=== PATIENT | female | born 1990 | race Caucasian/White ===

== ENCOUNTER 2020-12-13 15:33 | Outpatient (CLI) | payer OTHER ==
--- NOTE | 2020-12-13 16:40 | XRAY Report ---
PROCEDURE: Lumbar Spine 2 View INDICATIONS: LOW BACK PAIN TECHNIQUE: 2. views of the lumbar spine were acquired. COMPARISON: None. FINDINGS: Bones: There are 5 nonrib-bearing lumbar-type vertebral bodies of normal height and alignment. No si gnificant degenerative changes. No evidence of pars defect. Sacroiliac joint space is maintained. Soft tissues: Overlying bowel gas pattern is normal. No suspicious soft tissue calcifications. IMPRESSION: No acute finding or significant degenerative changes. Reviewed by: Nitin Alvarenga MD on 12/13/2020 4:38 PM PST Approved by: Nitin Alvarenga MD on 12/13/2020 4:38 PM PST Station ID: [id number]
== END 2020-12-13 15:34 | disposition home or self-care (01) ==
LOC: DI 15:33
PROVIDERS: ATTEND Physician Assistant
DX: M54.5 Low back pain (principal)

== ENCOUNTER 2021-02-13 09:15 | Outpatient (CLI) | payer OTHER ==
[2021-02-13] MEDS ORDERED: SODIUM CHLORIDE 0.9% IV ONE (10:45)
[2021-02-13] MEDS ORDERED: SINCALIDE IV ONE (10:45)
--- NOTE | 2021-02-13 13:52 | Nuclear Medicine Report ---
PROCEDURE: Hepatobiliary HIDA w/ Rx INDICATIONS: ABN ABD IMAGIN, ABD/EPIGASTRIC PAIN, NAUSEA AND VO RADIOPHARMACEUTICAL: 5.14 mCi Tc-99m meprofenin i.v. and 1.9 ?g sincalide i.v. TECHNIQUE: Following intravenous administration of Tc-99m meprofenin, sequential anterior abdominal images were obtained through 55 minutes. To evaluate the contractile response of the gallbladder in response to Cholecystokinin (CCK), 1.9 microgram sincalide (0.02 ?g/kg) was administered by slow intr avenous infusion after the administration of the radiopharmaceutical. Sequential imaging was continu ed for 30 minutes after the start of CCK infusion. Gallbladder ejection fraction was calculated. COMPARISON: None. FINDINGS: Biliary scan: There is normal tracer uptake and excretion by the liver. There is normal visualizati on of the intrahepatic ducts, common bile duct, and gallbladder. There is normal tracer transit into the duodenum. CCK stimulation: There is normal contractile response of the gallbladder to CCK infusion. The calcu lated gallbladder ejection fraction is 57%; normal values are above 35%. IMPRESSION: 1. Normal biliary imaging study. 2. Normal contractile response of gallbladder to CCK infusion.. Reviewed by: Ander Harvey MD on 02/13/2021 1:50 PM PDT Approved by: Ander Harvey MD on 02/13/2021 1:50 PM PDT Station ID: [id number]
== END 2021-02-13 09:16 | disposition home or self-care (01) ==
LOC: DI 09:15
PROVIDERS: ATTEND Student in an Organized Health Care Education/Training Program
DX: R93.5 Abnormal findings on diagnostic imaging of other abdominal regions, including retroperitoneum (principal); R10.13 Epigastric pain; R11.2 Nausea with vomiting, unspecified
CPT/HCPCS: 78227; J7040

== ENCOUNTER 2021-03-10 11:20 | Outpatient (CLI) | payer OTHER ==
[2021-03-10 11:56] LABS: ALBUMIN 4.3 g/dL (3.2-5.5); ALBUMIN/GLOBULIN RATIO 1.3 (1.0-2.2); BILIRUBIN,TOTAL 0.4 mg/dL (0.2-1.0); CALCIUM 9.5 mg/dL (8.5-10.3); CREATININE 0.7 mg/dL (0.4-1.0); POTASSIUM 4.1 mmol/L (3.5-5.0); TOTAL PROTEIN 7.5 g/dL (6.7-8.2)
== END 2021-03-10 11:21 | disposition home or self-care (01) ==
LOC: LAB 11:20
PROVIDERS: ATTEND Surgery
DX: Z01.812 Encounter for preprocedural laboratory examination (principal); K80.20 Calculus of gallbladder without cholecystitis without obstruction; Z20.822 Contact with and (suspected) exposure to COVID-19
CPT/HCPCS: 36415; 80053

== ENCOUNTER 2021-03-13 06:19 | Day surgery (SDC) | payer OTHER ==
[~2021-03-13 06:19] MED LIST: ceFAZolin 2 GM/50 ML 2 GM/50 ML BAG IV ONE
[2021-03-13 06:52] LABS: HCG UR QUAL NEGATIVE
[2021-03-13] MEDS ORDERED: BUPIVACAINE 0.5% PF 30 ML VIAL ONE (07:00)
[2021-03-13] MEDS ORDERED: MIDAZOLAM 2 MG/2 ML VIAL ONE (07:00)
[2021-03-13] MEDS ORDERED: fentaNYL 100 MCG/2 ML VIAL ONE (07:00)
[2021-03-13] MEDS ORDERED: LIDOCAINE-MPF 2% 5 ML VIAL ONE (07:00)
[2021-03-13] MEDS ORDERED: PROPOFOL 200 MG/20 ML VIAL IVP ONE (07:00)
[2021-03-13] MEDS ORDERED: IOTHALAMATE MEGLUMINE 50 ML VIAL ONE (07:01)
[2021-03-13] MEDS ORDERED: LACTATED RINGERS 1,000 ML IV ONE (07:05)
[2021-03-13] MEDS ORDERED: ROCURONIUM 50 MG/5 ML VIAL ONE ×2 (07:05→08:08)
--- NOTE | 2021-03-13 07:10 | ANESTHESIA ---
Pre-Anesthesia VS, & Labs - Diagnosis symptomatic cholelithiasis - Procedure lap curtis Vital Signs: Temp Pulse Resp BP Pulse Ox 36.3 C L 101 H 14 141/88 H 96 03/13/21 06:23 03/13/21 06:23 03/13/21 06:23 03/13/21 06:23 03/13/21 06:23 Height: 5 ft 9 in Weight (kg): 98.5 kg Body Mass Index: 32.1 BMI Classification: Obese - NPO >8 hours - Is Patient ?: No Home Medications and Allergies Home Medications: Ambulatory Orders ALPRAZolam [Alprazolam] 0.5 mg PO BID PRN 03/09/21 Dicyclomine [Bentyl] 10 mg PO QID PRN 03/09/21 Fluoxetine HCl [Prozac] 60 mg PO DAILY 03/09/21 HYDROmorphone [Dilaudid] 1 - 2 mg PO Q6H PRN 03/09/21 Omeprazole 40 mg PO BID 03/09/21 hydrOXYzine HCL [Hydroxyzine HCl] 25 - 50 mg PO QID PRN 03/09/21 ALPRAZolam [Alprazolam] 0.5 mg PO BID PRN 03/09/21 Dicyclomine [Bentyl] 10 mg PO QID PRN 03/09/21 Fluoxetine HCl [Prozac] 60 mg PO DAILY 03/09/21 HYDROmorphone [Dilaudid] 1 - 2 mg PO Q6H PRN 03/09/21 Omeprazole 40 mg PO BID 03/09/21 hydrOXYzine HCL [Hydroxyzine HCl] 25 - 50 mg PO QID PRN 03/09/21 Allergies/Adverse Reactions: Allergies Allergy/AdvReac Type Severity Reaction Status Date / Time sertraline [From Zoloft] Allergy Rash Verified 03/09/21 10:30 Anes History & Medical History - Anesthetic History Anesthesia Complications: reports: No previous complications - Medical History Cardiovascular: reports: None Pulmonary: reports: Sleep apnea (does not use cpap) Gastrointestinal: reports: Cholelithiasis Urinary: reports: None Neuro: reports: None Musculoskeletal: reports: None Endocrine/Autoimmune: reports: None Blood Disorders: reports: None Skin: reports: None Smoking Status: Current every day smoker (vapes) Psychosocial: reports: Depression, Anxiety, Other (PTSD) - Surgical History General: reports: Appendectomy, EGD Eyes Ears Nose Throat (EENT): reports: Tonsil/Adenoidectomy Gynecologic: reports: Other Exam General: Alert, Oriented x3, Cooperative, No acute distress Dental: WNL Mouth Openin Fingerbreadth Neck Mobility: Normal Mallampati classification: II Thyromental Distance: 4-6 cm Respiratory: Lungs clear, Normal breath sounds, No respiratory distress, No accessory muscle use Cardiovascular: Regular rate, Normal S1, Normal S2, No murmurs Mental/Cognitive Status: Alert/Oriented X3, Normal for patient Plan Anesthesia Type: General Consent for Procedure(s) Verified and Reviewed: Yes Code Status: Attempt Resuscitation ASA classification: 2-Mild systemic disease Is this case an emergency?: No
[2021-03-13] MEDS ORDERED: BUPIVACAINE 0.5% PF 30 ML VIAL INFIL ONE ×2 (07:16→08:39)
[2021-03-13] MEDS ORDERED: ONDANSETRON 4 MG/2 ML VIAL ONE (07:56)
[2021-03-13] MEDS ORDERED: DEXAMETHASONE 4 MG/ML VIAL ONE (07:56)
[2021-03-13] MEDS ORDERED: fentaNYL 100 MCG/2 ML VIAL IVP PRN (07:57)
[2021-03-13] MEDS ORDERED: NALOXONE 0.4 MG/ML VIAL IVP PRN (07:57)
[2021-03-13] MEDS ORDERED: ePHEDrine 50 MG/ML VIAL IVP PRN (07:57)
[2021-03-13] MEDS ORDERED: ONDANSETRON 4 MG/2 ML VIAL IVP PRN (07:57)
[2021-03-13] MEDS ORDERED: MORPHINE 2 MG/ML CARPUJECT IVP PRN (07:57)
[2021-03-13] MEDS ORDERED: ATROPINE ABBOJECT 1 MG/10 ML SYRINGE IVP PRN (07:57)
[2021-03-13] MEDS ORDERED: LACTATED RINGERS 1,000 ML IV SCH (08:00)
[2021-03-13] MEDS ORDERED: GLYCOPYRROLATE 1 MG/5 ML VIAL ONE (08:26)
[2021-03-13] MEDS ORDERED: NEOSTIGMINE 1 MG/1 ML 10 ML MDV ONE (08:26)
[2021-03-13] MEDS ORDERED: KETOROLAC 30 MG/ML VIAL ONE (08:27)
[2021-03-13] MEDS ORDERED: HYDROmorphone 1 MG/ML CARPUJECT ONE (09:01)
[2021-03-13] MEDS: HYDROmorphone 0.5 MG/0.5 ML SYRINGE IVP PRN ×5 (09:02→09:20)
--- NOTE | 2021-03-13 09:23 | OPERATIVE REPORT ---
Operative Report - General Procedure Date: 03/13/21 Planned Procedure: Laparoscopic cholecystectomy, possible open cholecystectomy, possible intraoperative cholangiogram, possible common bile duct exploration Pre-Op Diagnosis: Symptomatic cholelithiasis Procedure Performed: Laparoscopic cholecystectomy CPT 25338 Post Op Diagnosis: Same - Procedure Note Primary Surgeon: Froy Hussein MD Anesthesia Provider: Konstantin Childress CRNA Anesthesia Technique: General ET tube, Local (30 mL of half percent Marcaine) IV Fluids (mL): 1,000 Estimated Blood Loss (mL): 5 Drain/Tube Type: Other (None.) Complications: None. - Other Other Information/Narrative: After verbal and written informed consent was obtained detailing the operation, the alternatives to the operation including no operation, risks of infection, bleeding requiring transfusion with its risks, nerve injury, and and after I met with the patient confirming the surgery, the patient was brought to the operative suite and placed supine on the operating table. Great care was taken to avoid pressure points to prevent pressure necrosis or nerve injury. Monitoring devices were applied along with TEDs and pneumatic compressive stockings (to prevent DVT). The patient received preoperative antibiotics for surgical prophylaxis. Konstantin Childress CRNA sedated and anesthetized the patient for the entire procedure. The patient was prepped and draped in usual sterile manner. A "time in" then confirmed that the patient was identified with 3 identifiers (name, birthdate, and medical record number), the history and physical was in the chart, the signed consent confirming the procedure was in the chart, the patient was in the correct position, the aforementioned prophylactic measures were in place were given, we had the correct personnel and equipment to complete the procedure and that anesthesia, and the surgical team was given an opportunity to express any concerns. With the agreement of everyone in the room, we proceeded with the operation. The initial incision was at the umbilicus (excising her previous piercing site - with the patient's knowledge and consent) and dissection to the linea alba was completed using blunt dissection. The linea alba was grasped with a Omer and incised. In a similar manner the peritoneum was grasped and incised using Metzenbaum scissors. In this location, a 12 mm blunt tipped, balloon tipped port was placed and the balloon was inflated to keep the port in position. The abdominal cavity was insufflated with carbon dioxide to a steady-state pressure of 15 mmHg. 2 additional 5 mm ports were placed in standard locations for laparoscopic cholecystectomy (subxiphoid and right subcostal) under direct vision of the 30 degree laparoscope and without incident. The patient was then placed in reverse Trendelenburg position and was rotated slightly to their left. The gallbladder fundus was grasped with an atraumatic grasper. Some adhesions had to be taken down by blunt and sharp dissection along with electrocautery. Eventually, I identified the infundibulum and this was then grasped and retracted superiorly and laterally. Dissection was then begun at the angle of Calot. The cystic duct and (slightly medially and posteriorly), cystic artery were clearly identified. The critical view was obtained and a photograph taken. 2 clips proximally and one clip distally were used to control both the cystic duct and cystic artery. The clips were carefully placed to avoid occluding the juncture with the common bile duct. Both the cystic duct and then the cystic a rtery were then transected with laparoscopic edson. The gallbladder was then removed from its fossa in a retrograde manner using electrocautery. With the 30 degree 5 mm scope in the subxiphoid position, the gallbladder was placed in an Endo Catch bag to be extracted through the 12 mm port site. As there was no leak of bile and minimal bleeding I opted not to irrigate the right upper quadrant. I inspected the gallbladder fossa and there was no bleeding or bile leak. Clips on the cystic duct and cystic artery appeared to be secure. I briefly visually explored the abdomen. There was no other evidence of overt pathology. I injected the port sites at the peritoneal, fascial, and skin levels under direct vision with 0.5% Marcaine. All ports and the Endo Catch containing the gallbladder were removed. Following gallbladder removal, the remaining carbon dioxide was expelled from the abdomen. The fascia the umbilicus was approximated using 2 [id number] 0 Vicryl sutures. The skin at each port site was approximated using a subcuticular 4-0 Monocryl. The skin was cleaned of its prep and Dermabond was applied. At this point a "timeout" was performed that confirmed that all counts were correct, the procedure that was performed, the blood loss, the IV fluids administered, the patient's condition and any concerns of the operating team had. Having tolerated the procedure well, the patient was extubated and taken to recovery room in good and stable condition. The plan is for outpatient discharge when the patient is adequately recovered. This document was created in part using voice recognition technology. Because of the inherent limitations of the system, occasional same sounding word substitutions and grammatical errors do occur and persist despite proofreading. Please read this document for context.
[2021-03-13] MEDS ORDERED: ACETAMINOPHEN 1,000 MG/100 ML 100 ML IV ONE (09:28)
[2021-03-13] MEDS ORDERED: METOCLOPRAMIDE 10 MG/2 ML VIAL ONE (09:34)
[2021-03-13] MEDS ORDERED: LACTATED RINGERS 600 ML IV ONE (09:44)
[2021-03-13] MEDS ORDERED: HYDROcod/ACETAM 5/325 MG TABLET PO PRN (10:25)
--- NOTE | 2021-03-13 10:26 | ANESTHESIA POST OP EVALUATION ---
Anesthesia Post Eval - Post Anesthesia Eval Vitals: Last Vital Signs Temp 36.4 C L 03/13/21 09:43 Pulse 78 03/13/21 09:50 Resp 14 03/13/21 09:50 BP 131/74 H 03/13/21 09:50 Pulse Ox 92 03/13/21 09:50 CV Function Including HR & BP: Stable Pain Control: Satisfactory Nausea & Vomiting: Negative Mental Status: Baseline Respiratory Status: Airway Patent Hydration Status: Satisfactory Anesthesia Complications: None
[2021-03-13 10:30] VITALS: BP 129/76
== END 2021-03-13 06:20 | disposition home or self-care (01) ==
LOC: SDS 06:19
PROVIDERS: ATTEND Surgery
PROC: 0FT44ZZ Resection of Gallbladder, Percutaneous Endoscopic Approach (ICD-10-PCS; principal; 2021-03-13 07:30)
DX: K80.20 Calculus of gallbladder without cholecystitis without obstruction (principal); G47.30 Sleep apnea, unspecified; F17.290 Nicotine dependence, other tobacco product, uncomplicated; E66.9 Obesity, unspecified; Z68.32 Body mass index [BMI] 32.0-32.9, adult
CPT/HCPCS: 47562; 81025; J0131; J0690; J1170; J2765; J7120; 88304

== ENCOUNTER 2021-03-16 08:50 | Emergency (ER) | payer OTHER ==
--- OUTSIDE RECORDS SUMMARY | 2021-03-16 09:01 | EXTERNAL MEDICAL SUMMARY RPT | Continuity of Care Document ---
:1990 Demographics Phone Unavailable Preferred Language Unknown Marital Status Unknown Taoist Affiliation Unknown Race Unknown Ethnic Group Unknown Author Organization [facility] Address [address] [phone] Phone Social History date description facility [phone]
--- NOTE | 2021-03-16 09:50 | ED Physician Documentation ---
PD HPI NVD - Stated complaint Stated Complaint: POST OP NAUSEA/VOMITING - Chief complaint Chief Complaint: Abd Pain - History obtained from History obtained from: Patient - History of Present Illness Timing - onset: Today Timing - details: Abrupt onset (onset this morning of nausea with vomiting few times, then developed RUQ abd pain. She is 3 days post op for CCY and was having just mild pains the past 2 days. Severe pain this morning.) Associated symptoms: Abdominal pain, Loss of appetite. No: Fever, Chest pain, Hematemesis Contributing factors: No: Sick contact, Bad food, Recent antibiotics Improved by: Position (knees up and lying to left side.) Worsened by: Moving, Palpation. No: Breathing Similar symptoms before: Has not had sx before (she states hurts worse than the gallbladder attacks she had been having.) Recently seen: Surgery (3 days ago had scheduled CCY and was doing okay post-op day 1 and 2, but then with onset significant RUQ pain today.) Review of Systems Constitutional: denies: Fever, Chills Nose: denies: Rhinorrhea / runny nose, Congestion Throat: denies: Sore throat Cardiac: denies: Chest pain / pressure Respiratory: denies: Dyspnea, Cough GI: reports: Abdominal Pain, Nausea, Vomiting (just this morning). denies: Diarrhea Skin: denies: Rash, Lesions Neurologic: denies: Generalized weakness, Near syncope PD PAST MEDICAL HISTORY - Past Medical History Cardiovascular: None Respiratory: Sleep apnea (does not use cpap) Neuro: None Endocrine/Autoimmune: None GI: Cholelithiasis : None HEENT: Other Psych: Depression, Anxiety, Panic attacks, Post traumatic stress disorder Musculoskeletal: None Derm: None - Past Surgical History General: Appendectomy, EGD /AUDIOMETRIST: Other HEENT: Tonsil/Adenoidectomy - Present Medications Home Medications: Ambulatory Orders Medication Instructions Recorded Confirmed ALPRAZolam [Alprazolam] 0.5 mg PO BID PRN 03/09/21 03/16/21 Dicyclomine [Bentyl] 10 mg PO QID PRN 03/09/21 03/16/21 Fluoxetine HCl [Prozac] 60 mg PO DAILY 03/09/21 03/16/21 Omeprazole 40 mg PO BID 03/09/21 03/16/21 hydrOXYzine HCL [Hydroxyzine HCl] 25 - 50 mg PO QID PRN 03/09/21 03/16/21 Docusate Sodium 250Mg Capsule 250 mg PO DAILY #10 cap 03/13/21 03/16/21 [Colace 250Mg Capsule] HYDROcod/ACETAM 5/325 [[place] 5/325] 1 each PO Q4H #15 tablet 03/13/21 03/16/21 Naproxen Sodium 275 mg PO BID #15 tablet 03/16/21 Ondansetron Odt [Zofran] 4 mg TL Q6H PRN #10 tablet 03/16/21 oxyCODONE [Roxicodone] 5 - 10 mg PO Q4-6H PRN #20 tablet 03/16/21 - Allergies Allergies/Adverse Reactions: Allergies Allergy/AdvReac Type Severity Reaction Status Date / Time sertraline [From Zoloft] Allergy Rash Verified 03/16/21 09:13 - Social History Smoking Status: Current every day smoker (vapes) PD ED PE NORMAL - Vitals Vital signs reviewed: Yes - General General: Alert and oriented X 3, Well developed/nourished, Other (appears in considerable pain) - HEENT HEENT: Moist mucous membranes, Pharynx benign - Neck Neck: Supple, no meningeal sign, No adenopathy - Cardiac Cardiac: RRR, No murmur - Respiratory Respiratory: No respiratory distress, Clear bilaterally - Abdomen Abdomen: Normal bowel sounds, Soft, Non distended, No organomegaly, Other (very tender RUQ wqith guarding. No percussion tenderness. Recent surgical scope incisions without redness, swelling, drainage, nor tenderness. ) - Female Female : Deferred - Rectal Rectal: Deferred - Back Back: No CVA TTP - Derm Derm: Normal color, Warm and dry - Extremities Extremities: No tenderness to palpate, Normal ROM s pain, No edema, No calf tenderness / cord - Neuro Neuro: Alert and oriented X 3, No motor deficit, Normal speech Results - Vitals Vitals: Vital Signs - 24 hr 03/16/21 03/16/21 03/16/21 09:11 12:37 15:41 Temperature 36.5 C 36.9 C Heart Rate 66 76 72 Respiratory 16 16 Rate Blood Pressure 136/95 H 129/74 142/78 H O2 Saturation 99 94 97 Oxygen O2 Source Room air - Labs Labs: Laboratory Tests 03/16/21 03/16/21 03/16/21 09:30 09:30 10:15 WBC 10.5 RBC 4.46 Hgb 13.6 Hct 41.7 MCV 93.5 MCH 30.5 MCHC 32.6 RDW 12.4 Plt Count 368 MPV 9.3 Neut # (Auto) 7.7 H Lymph # (Auto) 2.1 [place] # (Auto) 0.5 Eos # (Auto) 0.1 Baso # (Auto) 0.1 Absolute Nucleated RBC 0.00 Nucleated RBC % 0.0 Sodium 138 Potassium 3.3 L Chloride 103 Carbon Dioxide 24 Anion Gap 11.0 BUN 13 Creatinine 0.7 Estimated GFR (MDRD) 99 Glucose 117 H Lactic Acid 1.2 Calcium 9.1 Magnesium 2.0 Total Bilirubin 0.4 AST 20 ALT 19 Alkaline Phosphatase 100 Total Protein 7.5 Albumin 4.3 Globulin 3.2 Albumin/Globulin Ratio 1.3 Lipase 17 L Urine Color Urine Clarity Urine pH Ur Specific [place] Urine Protein Urine Glucose (UA) Urine Ketones Urine Occult Blood Urine Nitrite Urine Bilirubin Urine Urobilinogen Ur Leukocyte Esterase Ur Microscopic Review Urine Culture Comments 03/16/21 12:43 WBC RBC Hgb Hct MCV MCH MCHC RDW Plt Count MPV Neut # (Auto) Lymph # (Auto) [place] # (Auto) Eos # (Auto) Baso # (Auto) Absolute Nucleated RBC Nucleated RBC % Sodium Potassium Chloride Carbon Dioxide Anion Gap BUN Creatinine Estimated GFR (MDRD) Glucose Lactic Acid Calcium Magnesium Total Bilirubin AST ALT Alkaline Phosphatase Total Protein Albumin Globulin Albumin/Globulin Ratio Lipase Urine Color YELLOW Urine Clarity CLEAR Urine pH 7.0 Ur Specific [place] <=1.005 Urine Protein NEGATIVE Urine Glucose (UA) NEGATIVE Urine Ketones 15 H Urine Occult Blood NEGATIVE Urine Nitrite NEGATIVE Urine Bilirubin NEGATIVE Urine Urobilinogen 0.2 (NORMAL) Ur Leukocyte Esterase NEGATIVE Ur Microscopic Review NOT INDICATED Urine Culture Comments NOT INDICATED - Rads (name of study) abd/pelvic CT Radiology: Prelim report reviewed (gallbladder absent, bild duct normal, panc reas normal, no free fluid. no sign of abscess. ), See rad report PD MEDICAL DECISION MAKING - ED course Complexity details: reviewed results (labs and ct are good. No signs of more significant cause. Presume then some adhesions or such. ), re-evaluated patient (improvement but not maintaining with IV med, needing repeat dosing. Sub sequently improved to moderate/tolerable level. ), considered differential (concern for bile leak, infection, abscess, ductal blockage, etc given her significant degree of pain. ), d/w patient, d/w collection systems consultant (Dr. Queen - surgery - who agreed with tests done, and suggested increased pain meds, antiemetic, recheck in office. Did not see reason for admission without acute findings on labs/imaging. ) ED course: Pain was improving with IV meds and repeat doses. Patient in ER longer awaiting Dr. Queen and office staff to return from lunch to discuss results and david tment plan. [facility] said no answer at office/pager. Subsequently I researched his cell number and called directly. I will give the number to the [facility] for future reference. Departure - Departure Disposition: Home, Self Care Clinical Impression: Post-op pain, Status post cholecystectomy Nausea and vomiting Qualifiers: Vomiting type: bilious vomiting Qualified Code(s): R11.14 - Bilious vomiting Condition: Stable Record reviewed to determine appropriate education?: Yes Instructions: ED Nausea Vomiting Follow-Up: Froy Hussein MD [Provider Admit Priv/Credential] - MILEY PALMER PA [Primary Care Provider] - Prescriptions: Naproxen Sodium 275 mg PO BID #15 tablet oxyCODONE [Roxicodone] 5 - 10 mg PO Q4-6H PRN #20 tablet PRN Reason: Pain Ondansetron Odt [Zofran] 4 mg TL Q6H PRN #10 tablet PRN Reason: Nausea / Vomiting Comments: Blood tests and CT scan did not show any acute complication from your surgery. Presume you had some pain related to early scar tissue and from the nausea and vomiting. I talked with Dr. Tolbert who wants her to be in touch with his office tomorrow and to see him next Saturday even if you are doing much better. Contact him sooner if not doing well with new medications. At this point will try adding an anti-inflammatory of naproxen twice daily with food. Ondansetron if needed for nausea. Change your pain medicine to oxycodone every 4-6 hours and see if that works better. Also take Tylenol 500 mg 4 times a day regularly regardless of pain for the next several days. Stay well-hydrated. Colbert food for the next several days. Return if worsening despite the new medication. Discharge Date/Time: 03/16/21 15:44
[2021-03-16] MEDS ORDERED: HYDROmorphone 1 MG/ML CARPUJECT IVP STA ×3 (10:04→14:39)
[2021-03-16] MEDS ORDERED: SODIUM CHLORIDE 0.9% 1,000 ML IV STA (10:04)
[2021-03-16] MEDS ORDERED: ONDANSETRON 4 MG/2 ML VIAL IVP STA (10:04)
[2021-03-16 10:10] LABS: BASOPHILS # (AUTO) 0.1 10^3/uL (0.0-0.1); BASOPHILS % (AUTO) 0.5 %; EOSINOPHILS # (AUTO) 0.1 10^3/uL (0.0-0.7); EOSINOPHILS % (AUTO) 1.1 %; HCT - HEMATOCRIT 41.7 % (37.0-47.0); HGB - HEMOGLOBIN 13.6 g/dL (12.0-16.0); LYMPHOCYTES # (AUTO) 2.1 10^3/uL (1.5-3.5); LYMPHOCYTES % (AUTO) 19.7 %; MEAN CORPUSCULAR HEMOGLOBIN 30.5 pg (27.0-31.0); MEAN CORPUSCULAR HGB CONC 32.6 g/dL (32.0-36.0); MEAN CORPUSCULAR VOLUME 93.5 fL (81.0-99.0); MEAN PLATELET VOLUME 9.3 fL (7.9-10.8); MONOCYTES # (AUTO) 0.5 10^3/uL (0.0-1.0); NEUTROPHILS # (AUTO) 7.7 10^3/uL (1.5-6.6); NEUTROPHILS % (AUTO) 73.3 %; PLT - PLATELET COUNT 368 10^3/uL (130-450); RED BLOOD COUNT 4.46 10^6/uL (4.20-5.40); RED CELL DISTRIBUTION WIDTH 12.4 % (12.0-15.0); WHITE BLOOD COUNT 10.5 x10^3/uL (4.8-10.8)
[2021-03-16] MEDS ORDERED: IOPAMIDOL-300 100 ML VIAL ONE (10:23)
[2021-03-16 10:24] LABS: ALBUMIN 4.3 g/dL (3.2-5.5); ALBUMIN/GLOBULIN RATIO 1.3 (1.0-2.2); BILIRUBIN,TOTAL 0.4 mg/dL (0.2-1.0); CALCIUM 9.1 mg/dL (8.5-10.3); CREATININE 0.7 mg/dL (0.4-1.0); POTASSIUM 3.3 mmol/L (3.5-5.0); TOTAL PROTEIN 7.5 g/dL (6.7-8.2)
--- NOTE | 2021-03-16 11:02 | CT Report ---
PROCEDURE: Abdomen/Pelvis W INDICATIONS: right upper pain; 3 days post CCY CONTRAST: IV CONTRAST: Isovue 300 ml: 100 PO CONTRAST: *NO PO CONTRAST TECHNIQUE: After the administration of IV contrast, 5 mm thick sections acquired from the diaphragms to the symp hysis. 5 mm thick coronal and sagittal reformats were acquired. For radiation dose reduction, the f ollowing was used: automated exposure control, adjustment of mA and/or kV according to patient size. COMPARISON: None. FINDINGS: ABDOMEN: Lung bases: Scattered subsegmental scarring/atelectasis. No acute consolidation. Heart:Normal. Liver: Hepatic steatosis. Gallbladder: Absent Bile ducts: Normal Pancreas: Normal Spleen: Mild splenomegaly Adrenals: Normal. Kidneys: Normal. Stomach: Normal. Bowel: Normal. The appendix is not clearly identified however no suspicious inflammatory changes in the right lower quadrant. Other: No free fluid or air. Abdominal nodes: Normal Aorta: Normal. IVC: Normal. Ventral wall: Normal. PELVIS: Bladder: Normal. Pelvic nodes: Normal. Inguinal: No hernia. Bones: No vertebral body compression fracture. No suspicious bone lesion IMPRESSION: Hepatic steatosis. Mild splenomegaly. Elsewhere, no acute abnormality. The appendix is not clearly identified however no suspicious inflamm atory changes in the right lower quadrant. Reviewed by: Milton Cooper MD on 03/16/2021 11:01 AM PDT Approved by: Milton Cooper MD on 03/16/2021 11:01 AM PDT Station ID: [id number]
[2021-03-16 13:02] LABS: BILIRUBIN,URINE NEGATIVE (NEGATIVE); GLUCOSE, URINE (UA) NEGATIVE (NEGATIVE); KETONES,URINE (UA) 15 mg/dL (NEGATIVE); LEUKOCYTE ESTERASE, URINE NEGATIVE (NEGATIVE); NITRITE,URINE NEGATIVE (NEGATIVE); OCCULT BLOOD,URINE NEGATIVE (NEGATIVE); PROTEIN,URINE NEGATIVE (NEGATIVE); UROBILINOGEN,URINE 0.2 (NORMAL) E.U./dL (NORMAL)
[2021-03-16 13:38] LABS: CLARITY,URINE CLEAR (CLEAR)
[2021-03-16] MEDS ORDERED: IOPAMIDOL-300 100 ML VIAL IVP ONE (14:09)
[2021-03-16] MEDS ORDERED: KETOROLAC 30 MG/ML VIAL IVP STA (14:39)
[2021-03-16 15:42] VITALS: BP 142/78
== END 2021-03-16 15:44 | disposition home or self-care (01) ==
LOC: ED 08:50
DX: G89.18 Other acute postprocedural pain (principal); R10.11 Right upper quadrant pain; R11.14 Bilious vomiting; Z90.49 Acquired absence of other specified parts of digestive tract; F17.290 Nicotine dependence, other tobacco product, uncomplicated
CPT/HCPCS: 36415; 74177; 80053; 81003; 83605; 83690; 83735; 85025; 99284; J1170; Q9967; 81001; 87086

== ENCOUNTER 2021-10-18 15:36 | Outpatient (CLI) | payer OTHER ==
--- NOTE | 2021-10-19 18:21 | Ultrasound Report ---
PROCEDURE: Pelvic w/Transvaginal INDICATIONS: RIGHT LOWER QUAD PAIN TECHNIQUE: Real-time scanning was performed of the pelvic organs, with image documentation. Additional endovagi nal scanning was necessary due to incomplete visualization of the adnexal and endometrial structures by transabdominal scanning. COMPARISON: Correlation is made with the prior abdomen and pelvis CT, 03/16/2021. FINDINGS: No pathologic free abdominal or pelvic fluid. Uterus: Uterus is normal in size at 7.1 x 2 x 4 cm. The endometrium measures 6 mm in combined thick ness. A small amount of fluid can be seen along the cervical canal. Echogenic focus is also seen wit hin the cervix measures less than 5 mm. The uterus demonstrates an unusual configuration, with a twis raven appearance. Ovaries: The right ovary measures 2.8 x 2.1 x 2.8 cm, with a calculated volume of 8.9 cc and the lef t ovary measures 3.9 x 1.7 x 2.8 cm, with a calculated volume of 10.9 cc. No significant ovarian abn ormalities are seen. There are less than 12 follicles seen on each side. No adnexal masses are see n. This study is limited by body habitus. IMPRESSION: A cause of right lower quadrant pain is not seen. Potential cervical polyp measuring less than 5 mm. Fluid is also seen within the endocervical canal. Please consider hysteroscopy for further evaluation. The uterus itself demonstrates an irregular appearance and appears twisted. However, no significant a bnormality of the uterus can be seen on the recent prior CT examination and this may simply be artifa ctual. Reviewed by: Mihai Quezada MD on 10/19/2021 5:20 PM [facility] Approved by: Mihai Quezada MD on 10/19/2021 5:20 PM [facility] Station ID: [id number]
== END 2021-10-18 15:37 | disposition home or self-care (01) ==
LOC: DI 15:36
PROVIDERS: ATTEND Physician Assistant
DX: R10.31 Right lower quadrant pain (principal); R93.89 Abnormal findings on diagnostic imaging of other specified body structures

== ENCOUNTER 2021-12-13 18:29 | Emergency (ER) | payer OTHER ==
--- NOTE | 2021-12-13 19:48 | ED Physician Documentation ---
History of Present Illness - Stated complaint Stated Complaint: RHR/COLD EXTREMETIES/DIARRHEA/SORE THROAT/VIKI - Chief complaint Chief Complaint: Resp - History obtained from History obtained from: Patient - History of Present Illness Timing: Today Pain level max: 3 Pain level now: 2 - Additonal information Additional information: Patient is a 31-year-old female who presents to the emergency department complaining of shortness of breath, diarrhea, chest tightness. History of anxiety. Has been vaccinated for Covid. Her recently tested positive for Covid. She has been having diarrhea for the past week. Has a mild dry cough. She does vape. Also uses CBD Gummies. Has never used inhalers. She states that her chest feels tight. Review of Systems Ten Systems: 10 systems reviewed and negative Constitutional: denies: Fever (102 T-max), Chills Nose: reports: Rhinorrhea / runny nose, Congestion Cardiac: denies: Chest pain / pressure, Palpitations Respiratory: reports: Dyspnea, Cough, Wheezing GI: denies: Abdominal Pain, Nausea, Vomiting, Diarrhea Skin: denies: Rash Musculoskeletal: denies: Neck pain, Back pain Neurologic: denies: Headache PD PAST MEDICAL HISTORY - Past Medical History Cardiovascular: None Respiratory: Sleep apnea (does not use cpap) Neuro: None Endocrine/Autoimmune: None GI: Cholelithiasis : None HEENT: Other Psych: Depression, Anxiety, Panic attacks, Post traumatic stress disorder Musculoskeletal: None Derm: None - Past Surgical History Past Surgical History: Yes General: Appendectomy, EGD /CENTRAL PROCESSING TECH: Other HEENT: Tonsil/Adenoidectomy - Present Medications Home Medications: Ambulatory Orders Medication Instructions Recorded Confirmed ALPRAZolam [Alprazolam] 0.5 mg PO BID PRN 03/09/21 03/16/21 Dicyclomine [Bentyl] 10 mg PO QID PRN 03/09/21 03/16/21 Fluoxetine HCl [Prozac] 60 mg PO DAILY 03/09/21 03/16/21 Omeprazole 40 mg PO BID 03/09/21 03/16/21 hydrOXYzine HCL [Hydroxyzine HCl] 25 - 50 mg PO QID PRN 03/09/21 03/16/21 Docusate Sodium 250Mg Capsule 250 mg PO DAILY #10 cap 03/13/21 03/16/21 [Colace 250Mg Capsule] HYDROcod/ACETAM 5/325 [[place] 5/325] 1 each PO Q4H #15 tablet 03/13/21 03/16/21 Naproxen Sodium 275 mg PO BID #15 tablet 03/16/21 Ondansetron Odt [Zofran] 4 mg TL Q6H PRN #10 tablet 03/16/21 oxyCODONE [Roxicodone] 5 - 10 mg PO Q4-6H PRN #20 tablet 03/16/21 Albuterol Sulf [Ventolin Hfa 1 - 2 puffs INH Q4HR PRN #1 inhaler 12/13/21 Inhaler] - Allergies Allergies/Adverse Reactions: Allergies Allergy/AdvReac Type Severity Reaction Status Date / Time sertraline [From Zoloft] Allergy Rash Verified 12/13/21 19:00 - Social History Does the pt smoke?: No Smoking Status: Current every day smoker (vapes) Does the pt have substance abuse?: No PD ED PE NORMAL - Vitals Vital signs reviewed: Yes - General General: Alert and oriented X 3, No acute distress, Well developed/nourished - HEENT HEENT: PERRL, Moist mucous membranes - Neck Neck: Supple, no meningeal sign - Cardiac Cardiac: RRR - Respiratory Respiratory: No respiratory distress, Clear bilaterally - Abdomen Abdomen: Soft, Non tender, Non distended - Derm Derm: Warm and dry - Extremities Extremities: No edema - Neuro Neuro: Alert and oriented X 3 - Psych Psych: Normal mood, Normal affect Results - Vitals Vitals: Vital Signs - 24 hr 12/13/21 12/13/21 12/13/21 18:55 19:22 20:09 Temperature 37.3 C Heart Rate 103 H 93 82 Respiratory 22 23 18 Rate Blood Pressure 132/89 H 133/85 H O2 Saturation 98 96 12/13/21 12/13/21 21:09 21:22 Temperature 37.2 C Heart Rate 87 84 Respiratory 20 18 Rate Blood Pressure 120/73 120/73 O2 Saturation 98 98 Oxygen O2 Source Room air - EKG (time done) 1906 Rate: Rate (enter#) (93) Rhythm: NSR [place]: Normal Intervals: Normal [place] QRS: Normal Ischemia: Normal ST segments - Labs Labs: Laboratory Tests 12/13/21 12/13/21 19:45 19:45 WBC 9.6 RBC 5.05 Hgb 15.3 Hct 45.1 MCV 89.3 MCH 30.3 MCHC 33.9 RDW 12.3 Plt Count 326 MPV 9.1 Neut # (Auto) 6.4 Lymph # (Auto) 2.4 [place] # (Auto) 0.7 Eos # (Auto) 0.1 Baso # (Auto) 0.0 Absolute Nucleated RBC 0.00 Nucleated RBC % 0.0 Sodium 134 L Potassium 3.6 Chloride 102 Carbon Dioxide 22 Anion Gap 10.0 BUN 9 Creatinine 0.7 Estimated GFR (MDRD) 98 Glucose 96 Calcium 9.1 Total Bilirubin 0.7 AST 21 ALT 34 Alkaline Phosphatase 85 Total Protein 7.9 Albumin 4.5 Globulin 3.4 Albumin/Globulin Ratio 1.3 Lipase 23 - Rads (name of study) cxr Radiology: Final report received, EMP read contemporaneously, See rad report (no acute abnormality.) PD MEDICAL DECISION MAKING - ED course Complexity details: reviewed results, re-evaluated patient, considered differential, d/w patient ED course: Patient with what appears to be a viral upper respiratory infection. Likely Covid. No acute findings on x-ray. No hypoxia. No respiratory distress. Feels better after Ativan and albuterol. Breathing easier. Also given IV fluids. We will continue supportive care, prescribe an inhaler for home and have her follow-up with her doctor for further care. Patient counseled regarding signs and symptoms for which I believe and urgent re-evaluation would be necessary. Patient with good understanding of and agreement to plan and is comfortable going home at this time This document was made in part using voice recognition software. While efforts are made to proofread this document, sound alike and grammatical errors may occur. Departure - Departure Disposition: Home, Self Care Clinical Impression: Viral syndrome Condition: Good Instructions: ED Viral Syndrome Follow-Up: MILEY PALMER PA [Primary Care Provider] - Within 1 week Prescriptions: Albuterol Sulf [Ventolin Hfa Inhaler] 1 - 2 puffs INH Q4HR PRN #1 inhaler PRN Reason: Shortness Of Air/Wheezing Comments: Prescription was sent to [facility] in [place]. Please follow-up with your doctor as needed for further care. Drink plenty of fluids and rest. Return if you worsen. You have a Covid test pending. You need to self quarantine until the result is done and negative. The results should be done in 24-48 hours. We will call with a positive result, the fastest way to get a negative result for confirmation though is to go to the hospital website at [email or web address], click on the my [facility] tab and sign up for the patient portal. If any of your friends and/or family need to be tested, they can call the hospital at [phone] for an appointment to have their Covid test. Discharge Date/Time: 12/13/21 21:28
[2021-12-13] MEDS: SODIUM CHLORIDE 0.9% 1,000 ML IV STA ×2 (19:57→21:10)
--- NOTE | 2021-12-13 20:03 | XRAY Report ---
PROCEDURE: Chest 1 View X-Ray INDICATIONS: cough, dyspnea TECHNIQUE: One view of the chest was acquired. COMPARISON: None FINDINGS: Surgical changes and devices: None. Lungs and pleura: No pleural effusions or pneumothorax. Lungs are clear. Mediastinum: Mediastinal contours appear normal. Heart size is normal. Bones and chest wall: No suspicious bony lesions. Overlying soft tissues appear unremarkable. IMPRESSION: No acute cardiopulmonary process demonstrated radiographically. Reviewed by: Nitin Alvarenga MD on 12/13/2021 8:02 PM [facility] Approved by: Nitin Alvarenga MD on 12/13/2021 8:02 PM [facility] Station ID: [id number]
[2021-12-13] MEDS: LORazepam 2 MG/ML VIAL IVP STA (20:04)
[2021-12-13 20:05] LABS: BASOPHILS % (AUTO) 0.3 %; EOSINOPHILS # (AUTO) 0.1 10^3/uL (0.0-0.7); EOSINOPHILS % (AUTO) 1.4 %; HCT - HEMATOCRIT 45.1 % (37.0-47.0); HGB - HEMOGLOBIN 15.3 g/dL (12.0-16.0); LYMPHOCYTES # (AUTO) 2.4 10^3/uL (1.5-3.5); LYMPHOCYTES % (AUTO) 24.9 %; MEAN CORPUSCULAR HEMOGLOBIN 30.3 pg (27.0-31.0); MEAN CORPUSCULAR HGB CONC 33.9 g/dL (32.0-36.0); MEAN CORPUSCULAR VOLUME 89.3 fL (81.0-99.0); MEAN PLATELET VOLUME 9.1 fL (7.9-10.8); MONOCYTES # (AUTO) 0.7 10^3/uL (0.0-1.0); MONOCYTES % (AUTO) 7.2 %; NEUTROPHILS # (AUTO) 6.4 10^3/uL (1.5-6.6); PLT - PLATELET COUNT 326 10^3/uL (130-450); RED BLOOD COUNT 5.05 10^6/uL (4.20-5.40); RED CELL DISTRIBUTION WIDTH 12.3 % (12.0-15.0); WHITE BLOOD COUNT 9.6 x10^3/uL (4.8-10.8)
[2021-12-13] MEDS: ALBUTEROL 1 PUFF INH STA (20:08)
[2021-12-13 20:21] LABS: ALBUMIN 4.5 g/dL (3.2-5.5); ALBUMIN/GLOBULIN RATIO 1.3 (1.0-2.2); BILIRUBIN,TOTAL 0.7 mg/dL (0.2-1.0); CALCIUM 9.1 mg/dL (8.5-10.3); CREATININE 0.7 mg/dL (0.4-1.0); POTASSIUM 3.6 mmol/L (3.5-5.0); TOTAL PROTEIN 7.9 g/dL (6.7-8.2)
[2021-12-13 21:09] VITALS: BP 120/73
== END 2021-12-13 21:28 | disposition home or self-care (01) ==
LOC: ED 18:29
DX: U07.1 COVID-19 (principal); B34.9 Viral infection, unspecified; F17.290 Nicotine dependence, other tobacco product, uncomplicated
CPT/HCPCS: 36415; 71045; 80053; 83690; 85025; 87635; 93005; 94664; 96374; 99284; J2060

== ENCOUNTER 2022-12-19 11:53 | Outpatient (CLI) | payer OTHER | END 2022-12-19 11:54 | disposition home or self-care (01) | LOC: LAB 11:53 | PROVIDERS: ATTEND Obstetrics & Gynecology | DX: Z31.41 Encounter for fertility testing (principal) | CPT/HCPCS: 36415; 82397; 84443 ==

== ENCOUNTER 2022-12-25 07:02 | Day surgery (SDC) | payer OTHER ==
[2022-12-25] MEDS ORDERED: CEFAZOLIN 2G/50ML 0.9% NS 2 GM/50 ML BAG IV ONE (07:16)
[2022-12-25] MEDS ORDERED: LACTATED RINGERS 1,000 ML IV ONE ×2 (07:36→10:09)
[2022-12-25] MEDS ORDERED: PROPOFOL 200 MG/20 ML VIAL IVP ONE (07:53)
[2022-12-25] MEDS ORDERED: MIDAZOLAM 2 MG/2 ML VIAL ONE (07:53)
[2022-12-25] MEDS ORDERED: ROCURONIUM 50 MG/5 ML VIAL ONE ×2 (07:53→09:05)
[2022-12-25] MEDS ORDERED: fentaNYL 100 MCG/2 ML VIAL ONE ×3 (07:54→10:31)
[2022-12-25] MEDS ORDERED: SCOPOLAMINE PATCH TOP ONE (08:06)
[2022-12-25] MEDS ORDERED: METHYLENE BLUE 0.5% 50 MG/10 ML AMPULE ONE (08:12)
[2022-12-25] MEDS ORDERED: BUPIVACAINE 0.25% PF 30 ML VIAL ONE (08:12)
[2022-12-25] MEDS ORDERED: fentaNYL 100 MCG/2 ML VIAL IVP PRN (08:13)
[2022-12-25] MEDS ORDERED: NALOXONE 0.4 MG/ML VIAL IVP PRN (08:13)
[2022-12-25] MEDS ORDERED: ATROPINE ABBOJECT 1 MG/10 ML SYRINGE IVP PRN (08:13)
[2022-12-25] MEDS ORDERED: HYDROmorphone 0.5 MG/0.5 ML SYRINGE IVP PRN (08:13)
[2022-12-25] MEDS ORDERED: ONDANSETRON 4 MG/2 ML VIAL IVP PRN (08:13)
[2022-12-25] MEDS ORDERED: ePHEDrine 50 MG/ML VIAL IVP PRN (08:13)
[2022-12-25] MEDS ORDERED: MORPHINE 2 MG/ML CARPUJECT IVP PRN (08:13)
--- NOTE | 2022-12-25 08:13 | ANESTHESIA ---
Pre-Anesthesia VS, & Labs - Diagnosis ovarian cyst, infertility investigation - Procedure lap ovarian cystectomy Vital Signs: Temp Pulse Resp BP Pulse Ox O2 Flow Rate 36.2 C L 93 16 135/91 H 97 12/25/22 07:36 12/25/22 07:36 12/25/22 07:36 12/25/22 07:36 12/25/22 07:36 Height: 5 ft 9 in Weight (kg): 96.9 kg Body Mass Index: 31.5 BMI Classification: Obese - NPO >8 hours - Is Patient ?: No Home Medications and Allergies Home Medications: Ambulatory Orders Cetirizine HCl [Allergy] 10 mg PO DAILY 12/24/22 Duloxetine HCl [Cymbalta] 60 mg PO DAILY 12/24/22 Ursodiol [[place]] 6 tab PO DAILY 12/24/22 ALPRAZolam [Alprazolam] 0.5 mg PO BID PRN 03/09/21 Cetirizine HCl [Allergy] 10 mg PO DAILY 12/24/22 Duloxetine HCl [Cymbalta] 60 mg PO DAILY 12/24/22 Ursodiol [[place]] 6 tab PO DAILY 12/24/22 Allergies/Adverse Reactions: Allergies Allergy/AdvReac Type Severity Reaction Status Date / Time sertraline [From Zoloft] Allergy Rash Verified 12/25/22 07:42 Anes History & Medical History - Anesthetic History Anesthesia Complications: reports: No previous complications Family history of Anesthesia Complications: Denies Family history of Malignant Hyperthermia: Denies - Medical History Cardiovascular: reports: None Pulmonary: reports: Sleep apnea Gastrointestinal: reports: Cholelithiasis Urinary: reports: None Neuro: reports: None Musculoskeletal: reports: None Endocrine/Autoimmune: reports: None Blood Disorders: reports: None Skin: reports: None Smoking Status: Current every day smoker (vapes) - Surgical History General: reports: Appendectomy, EGD Eyes Ears Nose Throat (EENT): reports: Tonsil/Adenoidectomy Gynecologic: reports: Other Exam General: Alert, Oriented x3, Cooperative Dental: WNL Mouth Openin Fingerbreadth Neck Mobility: Normal Mallampati classification: I Thyromental Distance: 4-6 cm Respiratory: Lungs clear Cardiovascular: Regular rate Plan Anesthesia Type: General Consent for Procedure(s) Verified and Reviewed: Yes Code Status: Attempt Resuscitation ASA classification: 2-Mild systemic disease Is this case an emergency?: No
[2022-12-25] MEDS ORDERED: DEXAMETHASONE 4 MG/ML VIAL ONE (08:51)
[2022-12-25] MEDS ORDERED: LACTATED RINGERS 1,000 ML IV SCH (09:00)
[2022-12-25] MEDS ORDERED: BUPIVACAINE 0.25% PF 30 ML VIAL SUBQ ONE ×2 (09:09)
[2022-12-25] MEDS ORDERED: METHYLENE BLUE 0.5% 50 MG/10 ML AMPULE IR ONE (09:10)
[2022-12-25] MEDS ORDERED: SUGAMMADEX 200 MG/2 ML VIAL IVP ONE (09:52)
[2022-12-25] MEDS ORDERED: KETOROLAC 30 MG/ML VIAL ONE (09:56)
[2022-12-25] MEDS ORDERED: ONDANSETRON 4 MG/2 ML VIAL ONE (09:56)
[2022-12-25] MEDS ORDERED: HYDROmorphone 1 MG/ML CARPUJECT ONE (09:58)
[2022-12-25] MEDS ORDERED: ACETAMINOPHEN 1,000 MG/100 ML 1,000 MG/100 ML BAG IV ONE (10:12)
[2022-12-25] MEDS ORDERED: traMADol 50 MG TABLET PO SCH (11:00)
[2022-12-25 11:10] VITALS: BP 125/78
--- NOTE | 2022-12-25 17:24 | ANESTHESIA POST OP EVALUATION ---
Anesthesia Post Eval - Post Anesthesia Eval Vitals: Last Vital Signs Temp 36.4 C L 12/25/22 11:08 Pulse 84 12/25/22 11:08 Resp 16 12/25/22 11:08 BP 125/78 12/25/22 11:08 Pulse Ox 95 12/25/22 11:08 O2 Flow Rate CV Function Including HR & BP: Stable Pain Control: Satisfactory Nausea & Vomiting: Negative Mental Status: Baseline Respiratory Status: Airway Patent Hydration Status: Satisfactory Anesthesia Complications: None
--- NOTE | 2022-12-26 07:15 | OPERATIVE REPORT ---
Operative Report - General Procedure Date: 12/25/22 Planned Procedure: Laparoscopic left ovarian cystectomy, chromopertubation, possible endometriosis biopsy Pre-Op Diagnosis: Left ovarian cyst, infertility, possible endometriosis Procedure Performed: Laparoscopic left paratubal cystectomy, chromopertubation Post Op Diagnosis: Left paratubal cysts, patent tubes bilaterally - Procedure Note Primary Surgeon: Danisha Mann DO Secondary Surgeon: Genaro Balderrama MD; assistance requested for retraction, safe completion Anesthesia Provider: Mellissa Sanchez CRNA Anesthesia Technique: General ET tube Pathology: Left paratubal cysts Estimated Blood Loss (mL): 20 Indications: Left adnexal cyst, infertility, possible endometriosis Findings: Four left paratubal cysts, patent tubes, no endometriosis noted Complications: None - Other Other Information/Narrative: Patient taken to OR where GETA obtained without difficulty. Placed in dorsal lithotomy position and prepped and draped in sterile fashion. Miller catheter placed. Roebuck speculum placed in vagina and anterior lip of cervix grasped with single tooth tenaculum. Anmoore manipulator placed with chromopertubation tubing attached. Speculum removed. Attention then turned to abdomen where 5mm vertical skin incision made in umbilical fold. Veress needle carefully introduced into peritoneal cavity. Intraperitoneal placement confirmed with drop test and drop in intraabdominal pressure with CO2 gas insufflation. Trocar and sleeve advanced without difficulty into abdomen where intraabdominal placement confirmed with laparoscope. Two additional incisions made in pelvis, 5mm on right and 11mm in left, bilaterally and trocars introduced under direct visualization. 0.25% bupivacaine injection prior to skin incisions x3. Aforementioned findings noted. No left ovarian cyst noted. Four ~1cm left paratubal cysts noted and were all torsed around left tube. Cysts and attachment was grasped with Ligasure and removed through left 11mm trocar. Chromopertubation performed with dilute methylene blue. Both tubes patent. Pelvis explored and no endometriosis noted. Hemostasis at all dissection sites. Matthew Tomason used to close left 11mm incision with 0-Vicryl. Trocars removed under direct visualization. Pneumoperitoneum released. Umbilical trocar removed. Incisions x3 closed with 4- 0 Monocryl and Dermabond. Catheter and manipulator removed. Hemostasis. Sponge, lap, needle, and instrument counts were correct x2. Patient taken to PACU in stable condition.
== END 2022-12-25 07:03 | disposition home or self-care (01) ==
LOC: SDS 07:02
PROVIDERS: ATTEND Obstetrics & Gynecology
PROC: 3E0P7KZ Introduction of Other Diagnostic Substance into Female Reproductive, Via Natural or Artificial Opening (ICD-10-PCS; 2022-12-25)
PROC: 0UB64ZZ Excision of Left Fallopian Tube, Percutaneous Endoscopic Approach (ICD-10-PCS; principal; 2022-12-25 08:30)
DX: N83.8 Other noninflammatory disorders of ovary, fallopian tube and broad ligament (principal); Z31.41 Encounter for fertility testing; E66.9 Obesity, unspecified; Z68.31 Body mass index [BMI] 31.0-31.9, adult; F17.290 Nicotine dependence, other tobacco product, uncomplicated; G47.30 Sleep apnea, unspecified; Z01.812 Encounter for preprocedural laboratory examination; N83.202 Unspecified ovarian cyst, left side; N97.9 Female infertility, unspecified
CPT/HCPCS: 36415; 58350; 58662; 84703; A9270; J0131; J0690; J1170; J3490; J7120

== ENCOUNTER 2022-12-25 07:16 | Outpatient (CLI) | payer OTHER ==
[2022-12-25 07:51] LABS: HCG,QUALITATIVE BLOOD NEGATIVE
== END 2022-12-25 23:59 | disposition home or self-care (01) ==
LOC: LAB 07:16
PROVIDERS: ATTEND Obstetrics & Gynecology
DX: Z01.812 Encounter for preprocedural laboratory examination (principal); N83.202 Unspecified ovarian cyst, left side; N97.9 Female infertility, unspecified
CPT/HCPCS: 36415; 84703